=== PATIENT | female | born 1955 | race Caucasian/White ===

== ENCOUNTER 2024-10-25 11:17 | Outpatient (CLI) | payer MEDICARE | END 2024-10-25 11:18 | disposition home or self-care (01) | LOC: CSHMRI 11:17 | PROVIDERS: ATTEND Family Medicine | DX: Z01.818 Encounter for other preprocedural examination (principal); M47.22 Other spondylosis with radiculopathy, cervical region; Z95.0 Presence of cardiac pacemaker | CPT/HCPCS: 71045; 72141; 76014 ==

== ENCOUNTER 2024-11-27 13:30 | Emergency (ER) | payer MEDICARE ==
[2024-11-27] MEDS ORDERED: Iopamidol 370 76% 100 ML VIAL ONE (14:24)
[2024-11-27 14:36] LABS: #Basophils 0.05 10x3/uL (0.0-0.2); #Eosinophils 0.30 10x3/uL (0.0-0.5); #Monocytes 0.55 10x3/uL (0.0-1.1); #Neutrophils 5.70 10x3/uL (1.5-8.4); %Basophils 0.7 % (0.0-2.0); %Eosinophils 3.9 % (0.0-6.0); %Lymphocytes 13.5 % (18.0-47.0); %Monocytes 7.2 % (0.0-10.0); %Neutrophils 74.2 % (40.0-75.0); Hematocrit 34.4 % (34.9-44.5); Hemoglobin 11.0 g/dL (12.0-15.5); Mean Corpuscular Hemoglobin 28.3 pg (27.0-33.0); Mean Corpuscular Volume 88.4 fL (81.6-98.3); Platelet Count 239 10x3/uL (150-450); Red Blood Cell (RBC) Count 3.89 10x6/uL (3.90-5.03); White Blood Cell (WBC) Count 7.68 10x3/uL (3.5-10.5)
[2024-11-27 14:55] LABS: ALT (SGPT) 324 U/L (Less than 34); AST (SGOT) 125 U/L (11-34); Albumin 3.2 g/dL (3.1-4.5); Alkaline Phosphatase 183 U/L (40-110); Anion Gap 10 mmol/L (10-20); BUN (Urea Nitrogen) 10 mg/dL (9.8-20.1); Bilirubin, Total 0.2 mg/dL (0.3-1.2); Calc. Creatinine Clearance 0 mL/min (70-130); Calcium 9.3 mg/dL (7.8-10.44); Carbon Dioxide 26 mmol/L (23-31); Chloride 111 mmol/L (98-107); Globulin 3.7 g/dL (2.4-3.5); Glucose 86 mg/dL (80-115); Lipase 7 U/L (8-78); Potassium 4.0 mmol/L (3.5-5.1); Sodium 143 mmol/L (136-145)
[2024-11-27 15:07] LABS: Glucose, Urine (Dipstick) Normal (Negative); Leukocyte 25 (Negative); Protein, Urine (Dipstick) Negative (Neg-Trace); Specific Gravity, Urine 1.015 (1.005-1.030)
[2024-11-27 15:49] LABS: Bacteria/HPF 1+ HPF (None Seen); CAUTI Indications for Culture Pelvic or flank pain; Mucous/LPF 1+ LPF (<2+); RBC/HPF 0-3 HPF (0-3); WBC/HPF 0-3 HPF (0-3)
[2024-11-27 15:52] LABS: Urine Culture Reflex No No
[2024-11-27 20:16] LABS: Hep A IgM AB NONREACTIVE (NonReactive); Hep A IgM S/CO 0.13 S/CO (0-0.79); Hep B Core IgM Index 0.07 S/CO (0-0.79); Hep B Surf Ag NONREACTIVE S/CO (NonReactive); Hep C IgG Ab NONREACTIVE S/CO (NonReactive); Hep C Index 0.06 S/CO (0-0.79)
== END 2024-11-27 18:15 | disposition home or self-care (01) ==
LOC: CSHERS 13:30
DX: R14.0 Abdominal distension (gaseous) (principal); R74.01 Elevation of levels of liver transaminase levels; Z75.3 Unavailability and inaccessibility of health-care facilities; Z95.0 Presence of cardiac pacemaker
CPT/HCPCS: 74177; 76705; 80074; 81001; 83690; 96360; 96361; Q9967